=== PATIENT | male | born 2000 | race Caucasian/White ===

== ENCOUNTER 2019-02-24 07:41 | Inpatient (IN) | payer OTHER, BC ==
[2019-02-24] VITALS (8 sets, daily range): BP systolic 109–148; BP diastolic 62–91
[~2019-02-24] VITALS: Ht 180.3 cm; Wt 72.8 kg
--- NOTE | ~2019-02-24 | O ---
[place], [place] OPERATIVE NOTE [id number] UN[facility] #: [id number] ROOM: 517 DOCTOR: VALENTIN FERNANDEZ,GLORIA BIRTHDATE: [birth year] DOS: 02/26/2019 GASTROENDOSCOPIC REPORT SUBJECTIVE: The patient has presented with epigastric abdominal pain, nausea, vomiting. The patient with consumption of marijuana and caffeinated beverages at least 4 bottles of Mountain Dew per day. PROCEDURE: Today's procedure part of investigation is panendoscopy plus biopsy and photographic series. PREMEDICATION: Propofol. SCOPE: Olympus forward-viewing gastroscope Q10 video. REPORT: After putting the patient in left lateral position and application of lubricant to the scope, the scope was introduced. Thereafter, under direct visualization, advanced through the length of esophagus without difficulty. Distal esophageal ulceration and superficial Sharmaine-Jones tear was noticed. Hiatal hernia seen. Bile reflux gastritis was noticed. Duodenal bulb, second and third part mild duodenitis, multiple biopsies obtained from duodenum. Antral biopsy obtained. GI reflexion of the scope reveals cardia to be benign. The patient extubated, tolerated the procedure well. IMPRESSION: Distal esophageal ulcer secondary to reflux, small Sharmaine-Jones tear, hiatal hernia, gastroesophageal reflux disease, status post antral and duodenal biopsy. PLAN AND DISCUSSION: Aggressive ulcer therapy. We are going to give this patient GI cocktail right now, Protonix IV 40 mg b.i.d., Carafate slurry 2 g q.4h, 2 hours before meals and at bedtime, antireflux, elevation of the head of the bed 6 inch all time and clinical reassessment. GLORIA HANSON MD CM:OPRECORD:OPERATIVE NOTE 1512 1526 GLORIA HANSON MD 02/26/19 1527 interface
--- NOTE | ~2019-02-24 | EKG ---
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
--- NOTE | ~2019-02-24 | PR ---
[place], [place] PROGRESS NOTE NAME: FER JAUREGUI [facility] #: [id number] UNIT #: [id number] ROOM: 517 DOCTOR: JUNAID FLORES,OCTOBER BIRTHDATE: [birth year] DOS: 02/27/2019 SUBJECTIVE: The patient is being followed for nausea, vomiting, diarrhea, fevers, possible endocarditis. His temperature overnight was up to 102.9. He had nausea and vomiting earlier. He also has cough-induced emesis. He continues with coughing clear sputum, little shortness of breath as well as diarrhea, no blood in the stool as well as upper mid-epigastric pain that does go through to the back. He had a CT of the abdomen and pelvis, which I reviewed. Unable to access the films that had no acute findings in the abdomen or pelvis. The CTA of the chest showed no PE, faint geographic gap ground glass opacities. The patient had an echocardiogram, which showed possible small right vegetation on the tricuspid valve. He is scheduled for a HOLLY on Friday. All of his blood cultures remained sterile. Urine culture remained sterile. Group A Streptococcal was negative. LABORATORY DATA: Cultures as reviewed above. Vancomycin trough 9.8. REVIEW OF SYSTEMS: As above in history of present illness, otherwise negative. PHYSICAL EXAMINATION: VITAL SIGNS: Temperature 98.6, pulse 78, respirations 18, BP 107/52. GENERAL: A 18-year-old male in mild distress, somewhat toxic in appearance. HEENT: Normocephalic. Pupils equal, round, and reactive to light. Oropharynx without any exudates. No thrush. NECK: Supple. LUNGS: Clear to auscultation bilaterally. Respirations slightly labored. HEART: Regular rhythm. No murmur appreciated. ABDOMEN: Soft, nondistended. Bilateral upper quadrant tenderness to palpation, positive bowel sounds, nondistended. EXTREMITIES: No edema, deformity or cyanosis. SKIN: Warm, dry, free of rashes. Multiple tattoos noted. 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 PLAN: He is to continue vancomycin and Rocephin. Followup on the HOLLY on Friday. Followup on the HIV, histoplasma, urine GC and chlamydia and RPR. OCTOBER MARK QUIROGA [place], [place] PROGRESS NOTE NAME: JODI JAUREGUIJermain Wong UNIT #: [id number] ROOM: 517 DOCTOR: JUNAID FLORESOCTOBER BIRTHDATE: [birth year] Helen Bailey MD CM:PNRC [id number] JUNAID FLORES 02/27/191919 interface
--- NOTE | ~2019-02-24 | CON ---
[place], [place] REPORT OF CONSULTATION NAME: [facility]GUI [id number] UNIT #: [id number] ROOM: 517 DOCTOR: GLORIA HANSON MD BIRTHDATE: [birth year] DOS: 02/26/2019 HISTORY OF PRESENT INDICATIONS: This is a 18-year-old patient who has presented with chief complaint of epigastric abdominal pain for the past 5 days and associated with nausea. The patient has presented himself to the Emergency Room. Radiologic and basic studies were done. The patient with a history of 4-5 cans of Mountain Dew drinking. Yesterday evening, white blood cell was 10, H and H of 14 and 41. Comprehensive metabolic panel: GFR greater than 60. Liver function tests normal. C-reactive protein was normal. Drug screening was THC of greater than 50. His BNP was negative. D-dimer 0.8. Chest x-ray was normal. No acute process. CTA of the chest was done, results were no evidence of pulmonary embolism. Lactic acid was 0.9, normal. CT scan with contrast was done, no acute findings of the abdomen was noticed. CBC differential remained within normal limit. Comprehensive metabolic panel remained within normal limit. Liver function tests normal. Strep screen was negative. Urine cultures were negative. So, essentially all active search for source of sepsis remained negative despite the fact that the patient had a temperature last night and today has been having active nausea, vomiting even at the time of my visit. Monospot was remaining negative. Sed rate was greater than 100. PAST MEDICAL HISTORY: Nonspecific abdominal pain, nausea, or vomiting. PAST SURGICAL HISTORY: None. SOCIAL HISTORY: Denies recreational drugs, particularly in the injection for marijuana periodically. MEDICATIONS: List at home, nil. ALLERGIES: AMOXICILLIN. REVIEW OF SYSTEMS: HEENT: Denies double vision, blurred vision. RESPIRATORY: Denies shortness of breath. CARDIOVASCULAR: Denies acute chest pain. DIGESTIVE SYSTEM: Nausea and vomiting. No diarrhea. PHYSICAL EXAMINATION: VITAL SIGNS: Stable. HEENT: Head normocephalic, nontraumatic. Mouth and buccal mucosa benign. NECK: Supple, no thyromegaly, no cervical lymphadenopathy. CHEST: Symmetric anatomy, equal expansion. No wheeze, no rhonchi. HEART: Normal sinus rhythm, no gallop, no murmur. ABDOMEN: Soft. No hepato-organomegaly. Bowel sounds present. No pulsatile mass. No wheeze. No rebound tenderness, pointing to the epigastric anatomy with pain. EXTREMITIES: No cyanosis, no pedal edema. NEUROLOGIC: Alert, oriented to time, place, person. [place], [place] REPORT OF CONSULTATION NAME: FRE JAUREGUI UNIT #: [id number] ROOM: [facility] DOCTOR: GLORIA HANSON MD BIRTHDATE: [birth year] IMPRESSION: Nausea, vomiting, low-grade temperature, and epigastric pain. A transient ischemic attack workup for sepsis has been negative. CT scan, radiologic, and hematologic studies were all within normal limit. PLAN AND DISCUSSION: Due to the persistent nausea, vomiting I am going to organize endoscopy of upper tract and further decision for repeat studies or otherwise no pattern of assessment depending on endoscopic findings. So far, there have been normal liver, pancreas, spleen, adrenal glands, and kidneys all main organs within normal limits. GLORIA HANSON MD CM:CONSTR:REPORT OF CONSULTATION 1445 02/26/19 9500 interface
--- NOTE | ~2019-02-24 | PR ---
[place], [place] PROGRESS NOTE NAME: FER JAUREGUI [facility] #: [id number] UNIT #: [id number] ROOM: 517 DOCTOR: JUNAID FLORES,OCTOBER BIRTHDATE: [birth year] DOS: 02/28/2019 SUBJECTIVE: The patient is a 18-year-old male being followed for recurrent fever of unknown origin. His blood cultures remained sterile. Urine culture from admission on the is sterile. He had a UA done twice, which has not demonstrated any pyuria. He continues to have nausea and vomiting. He had an EGD on the which showed a small Sharmaine-Jones tear as well as a distal esophageal ulcer, hiatal hernia and GERD. He had an echocardiogram, which showed a small mobile echodensity on the tricuspid valve. He is to have a HOLLY tomorrow. He continues with fevers, chills, coughing or vomiting. He is bringing up very little sputum. He had diarrhea earlier today. He states a small amount of blood in his emesis. Temp documented max today is 102.8. Lactic acid was 2.3 at 5:43 a.m. down to 1.0 at 7:55. He has some shortness of breath after emesis. Continues to complain of upper mid epigastric pain. He had a repeat CT of the chest, abdomen and pelvis, which showed a slight worsening in scattered patchy ground glass areas of airspace consolidation involving all lobes and a possible small area of pyelonephritis involving mid pole of left knee, though this is doubtful considering his negative UA. He has no complaints of urinary issues. LABORATORY DATA: Cultures as reviewed above. WBC is 10.1, platelets 422. BUN 7, creatinine 0.89. LFTs within normal limits. Albumin 2.7. MEDICATIONS: Include ibuprofen, Levaquin, Tylenol, DuoNeb, vancomycin, Carafate, Dilaudid, Reglan, Rocephin, Mucinex, Lovenox, and Protonix. PHYSICAL EXAMINATION: VITAL SIGNS: Temperature 99.2, pulse 92, respirations 16, BP 144/89. GENERAL: A 18-year-old male, fairly toxic in appearance. HEENT: Normocephalic. Oropharynx clear. No thrush. NECK: Supple. LUNGS: Clear to auscultation bilaterally throughout. Respirations slightly labored, just status post emesis. HEART: Regular rhythm. No murmur appreciated. ABDOMEN: Soft, nondistended, positive bowel sounds. EXTREMITIES: No edema, deformity or cyanosis. SKIN: Warm, dry, free of rashes. ASSESSMENT: Recurrent fever, tricuspid valve vegetation. He is to have a HOLLY tomorrow. Blood cultures remained sterile. PLAN: To continue vancomycin and Rocephin. Chest CT did show worsening. Levaquin was added by hospitalist. This would add coverage for pseudomonas and legionella. We will order urine for legionella antigen. Follow up on his cultures as well as HIV, histoplasma, urine for GC and chlamydia as well as his RPR. Follow up on the HOLLY tomorrow. [place], [place] PROGRESS NOTE NAME: FER JAUREGUI UNIT #: [id number] ROOM: [facility] DOCTOR: JUNAID FLORESOCTOBER BIRTHDATE: [birth year] SHELLIE QUIROGA CNP Helen Bailey MD CM:SUDHIR 11 JUNAID FLORES 02/28/191712 interface
--- NOTE | ~2019-02-24 | EKG ---
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
--- NOTE | ~2019-02-24 | POSTOPNOTE ---
[place], [place] POSTOPERATIVE PROGRESS NOTE NAME: FER JAUREGUI UNIT #: [id number] ROOM: [facility] DOCTOR: GLORIA HANSON MD BIRTHDATE: [birth year] DATE: 02/26/19 GI NOTE PREOPERATIVE DIAGNOSIS: EPIGASTRIC ABDOMINAL PAIN, NAUSEA, VOMITING POSTOP UPPER GI PROC/FINDINGS: UPPER GI PROCEDURE/SURGERY: EGD WITH BIOPSY UPPER GI FINDINGS: DISTAL ESOPHAGEAL ULCER SECONDARY TO REFLUX, SMALL UNRULY-KWON TEAR, HIATAL HERNIA, GASTROESOPHAGEAL REFLUX DISEASE, STATUS POST ANTRAL AND DUODENCAL BIOPSY GLORIA HANSON MD CM:POSTOPN GLORIA HANSON MD 03/01/19 0654 ROSALBA LUKE MIS.R
[2019-02-24 08:06] LABS: BASO % 0.3 % (0.0-1.0); EOS % 0.4 % (1.0-4.0); HEMATOCRIT 41.7 % (42.0-52.0); LYMPH # 0.7 10*3/uL (1.3-4.4); LYMPH % 7.1 % (27.0-41.0); MEAN CELL VOLUME 80.2 fl (80.0-94.0); MEAN CORPUSCULAR HGB 26.9 pg (27.0-31.0); MEAN CORPUSCULAR HGB CONC 33.6 g/dl (33.0-37.0); MEAN PLATELET VOLUME 8.9 fl (9.6-12.3); MONO # 0.5 10*3/uL (0.1-1.0); MONO % 5.2 % (3.0-9.0); NEUT % 86.6 % (47.0-73.0); PLATELET COUNT AUTOMATED 281 10*3/uL (130-400); RED CELL DISTRI WIDTH 11.7 % (0-14.5); WHITE BLOOD COUNT 10.4 10*3/uL (4.8-10.8)
[2019-02-24 08:20] LABS: ALBUMIN 3.5 gm/dl (3.1-4.5); ALKALINE PHOSPHATASE 91 U/L (45-117); BUN 12 mg/dl (7-24); CHLORIDE 100 mmol/L (98-107); CREATININE 1.11 mg/dL (0.70-1.30); LIPASE 95 U/L (73-393); POTASSIUM 3.7 mmol/L (3.5-5.1); SGOT/AST 16 IU/L (3-35); SGPT/ALT 12 U/L (12-78); SODIUM 132 mmol/L (136-145); TOTAL PROTEIN 8.4 gm/dL (6.4-8.2)
[2019-02-24] MEDS ORDERED: KEFLEX 500 MG E2 CAP PO (08:32)
[2019-02-24 08:41] LABS: BILIRUBIN 2+ (NEGATIVE); BLOOD NEGATIVE (NEGATIVE); CLARITY SL CLOUDY (CLEAR); COLOR YELLOW (YELLOW); GLUCOSE TRACE (NEGATIVE); KETONE 3+ (NEGATIVE); LEUKO ESTERASE NEGATIVE (NEGATIVE); NITRITE NEGATIVE (NEGATIVE); URINE AMPHETAMINES < 1000 (1000ng/ml); URINE BARBITURATES < 200 (200ng/ml); URINE BENZODIAZEPINES < 200 (200ng/ml); URINE CANNABINOIDS (THC) > 50 (50ng/ml); URINE COCAINE < 300 (300ng/ml); URINE METHADONE < 300 (300ng/ml); URINE OPIATES < 300 (300ng/ml); URINE PHENCYCLIDINE < 25 (25ng/ml); UROBILINOGEN >= 8.0 E.U./dl (0.2-1.0)
[2019-02-24 08:58] LABS: BACTERIA 1+; MUCOUS 3+; WBC 16-20 wbc/hpf (0-5)
--- NOTE | 2019-02-24 11:15 | NUR ---
PT SLEEPING IN BED AT THIS TIME AROUSES EASILY. RESPS EASY AND NONLABORED. PT DENIES NAUSEA AND STATES THAT HIS PAIN IS 3/10 AT THIS TIME.
--- NOTE | 2019-02-24 12:55 | NUR ---
Time: 1254 A 18 year old MALE admitted to 5E under services of RAOUL WEST DO, Pt. arrived via stretcher from ER. Chief complaint: ABD PAIN, N/V. CAROLINAYA,BRUNO D
--- NOTE | 2019-02-24 15:33 | NUR ---
pt woke up from sleeping . face is flushed. chilling, freezing. states his head hurts and abd pain. esther suggs notified
--- NOTE | 2019-02-24 16:38 | NUR ---
PT MEDICATED WITH TORADOL FOR C/O MIGRAINE AND ABD PAIN WILL MONITOR
--- NOTE | 2019-02-24 16:39 | NUR ---
PT MEDICATED WITH BENEDRYL FOR NAUSEA. WILL MONITOR
--- NOTE | 2019-02-24 21:29 | NUR ---
PRN TYLENOL GIVEN FOR PT COMPLAINTS OF A SHARP PAIN IN THE MIDDLE OF HIS ABDOMEN, RATING IT 4/10 ONCE HE LAID DOWN, BUT WAS 8/10 WHEM STANDING UP. CALL LIGHT WITHIN REACH, WILL MONITOR
--- NOTE | 2019-02-24 22:40 | NUR ---
PRN TYLENOL EFFECTIVE PER PT
[2019-02-25] VITALS: BP 118/62
--- NOTE | 2019-02-25 06:35 | NUR ---
PATIENT WOKE UP IN A SWEAT. CHECKED PATIENTS TEMPERATURE AND BLOOD SUGAR, TEMP WAS 99.2 AND BLOOD SUGAR WAS 98. OFFERED FOR PATIENT TO GET IN THE SHOWER, PATIENT STATED THAT MIGHT MAKE HIM FEEL A LITTLE BETTER. PRN TYLENOL ALSO PROVIDED FOR PATIENT AT THIS TIME. CALL LIGHT WITHIN REACH, WILL MONITOR
[2019-02-25 07:01] LABS: BASO % 0.1 % (0.0-1.0); EOS # 0.1 10*3/uL (0.0-0.4); EOS % 0.7 % (1.0-4.0); HEMATOCRIT 35.8 % (42.0-52.0); HEMOGLOBIN 11.8 g/dl (14.0-18.0); LYMPH # 0.6 10*3/uL (1.3-4.4); LYMPH % 8.1 % (27.0-41.0); MEAN CELL VOLUME 81.4 fl (80.0-94.0); MEAN CORPUSCULAR HGB 26.8 pg (27.0-31.0); MEAN PLATELET VOLUME 9.2 fl (9.6-12.3); MONO # 0.3 10*3/uL (0.1-1.0); MONO % 4.2 % (3.0-9.0); NEUT % 86.5 % (47.0-73.0); PLATELET COUNT AUTOMATED 222 10*3/uL (130-400); RED CELL DISTRI WIDTH 11.8 % (0-14.5); WHITE BLOOD COUNT 6.9 10*3/uL (4.8-10.8)
--- NOTE | 2019-02-25 07:26 | NUR ---
24 HR chart check completed.
[2019-02-25 07:27] LABS: ALBUMIN 2.8 gm/dl (3.1-4.5); CHLORIDE 106 mmol/L (98-107); POTASSIUM 3.7 mmol/L (3.5-5.1); SODIUM 138 mmol/L (136-145)
[2019-02-25 07:33] LABS: ALKALINE PHOSPHATASE 71 U/L (45-117); BUN 11 mg/dl (7-24); CREATININE 0.87 mg/dL (0.70-1.30); PHOSPHOROUS 2.7 mg/dL (2.5-4.9); SGOT/AST 11 IU/L (3-35); SGPT/ALT 11 U/L (12-78); TOTAL PROTEIN 7.1 gm/dL (6.4-8.2)
--- NOTE | 2019-02-25 08:20 | NUR ---
Patient resting quietly with no c/o discomfort. Respirations easy and regular. Vital signs stable. No overt distress. ROBBIE DIAS
[2019-02-25 08:34] VITALS: BP 106/50
--- NOTE | 2019-02-25 09:23 | NUR ---
PT EDICATED ON DR HANSON CONSULT, TESTING, MEDICATIONS AND SYMPTOMS R/T THIS ADM AND POSSIBLE GI ISSUES. PT DOES CONTINUE TO ADMIT TO STABBING ABDOMINAL PAIN.
[2019-02-25 11:44] VITALS: BP 121/71
--- NOTE | 2019-02-25 12:29 | NUR ---
MEDICATED WITH IV DILAUDID ORDERED PER PT REQUEST FOR C/O STABBING ABDOMINAL PAIN RATED 8/10. BA ON.
--- NOTE | 2019-02-25 13:38 | NUR ---
Warehouse Associate Driver in to talk to patient. Patient states lives at HOME with PARENTS. There are FEW steps in the home. Physician: BERNARDA Pharmacy: [facility] Home health services: NO Patient's level of ADLs: INDEPENDENT Patient has working utilities: YES DME: NONE Follow-up physician's appointment after d/c: WILL BE MADE AFTER DISCHARGE Does patient want to access PORTAL?: NO Discharge plan PT WILL RETURN HOME WITH PARENTS ON DISCHARGE WITH NO NEW NEEDS.. WILL CONTINUE TO FOLLOW. PT STATES HE WILL HAVE A RIDE HOME. WILVER KNOX
--- NOTE | 2019-02-25 14:00 | NUR ---
MEDICATION EFFECTIVE FOR PAIN.
[2019-02-25 16:00] VITALS: BP 120/70
--- NOTE | 2019-02-25 16:48 | NUR ---
MEDICATED WITH PO TYLENOL ORDERED PER PT REQUEST FOR TEMP OF 102.4.
--- NOTE | 2019-02-25 17:33 | NUR ---
MEDICATED WITH IV DILAUDID ORDERED PER PT REQUEST FOR C/O ABDOMINAL PAIN RATED 5/10.
--- NOTE | 2019-02-25 19:30 | NUR ---
MEDICATION EFFECTIVE FOR PAIN.
[2019-02-25 20:00] VITALS: BP 116/68
[2019-02-26] VITALS (10 sets, daily range): BP systolic 105–141; BP diastolic 46–88
--- NOTE | 2019-02-26 03:39 | NUR ---
24HR CHART CHECK COMPLETED.
--- NOTE | 2019-02-26 05:10 | NUR ---
CALLED TO PT ROOM. STATES HE "CAN'T BREATH". PT FOUND TO BE TACHYPNIC, HR 113, BP 137/88, POX 94% ON RA. TEMP 102.3. 2L NC PLACED ON, COACHED PT TO CONTROLL BREATHING IN AND OUT WITH DEEP BREATHING TECHNIQUES. ZOFRAN GIVEN FOR NAUSEA/EMESIS, DILAUDID GIVEN FOR ABDOMINAL PAIN 10/10, TYLENOL GIVEN FOR FEVER. WILL MONITOR FOR EFFECTIVENESS. PT CALMING DOWN AFTER MEDS WERE GIVEN. ASKED NURSE TO STAY IN ROOM A WHILE LONGER.
--- NOTE | 2019-02-26 05:29 | NUR ---
PT MORE CALM AT THIS TIME. RESPERS 18 ON 2LNC. REPORTS "FEELING BETTER" AT THIS TIME. "LIKE IT NEVER HAPPENED." CALL LIGHT IN REACH. IVF GOING.
[2019-02-26 06:34] LABS: HEMATOCRIT 34.3 % (42.0-52.0); HEMOGLOBIN 11.2 g/dl (14.0-18.0); MEAN CELL VOLUME 81.7 fl (80.0-94.0); MEAN CORPUSCULAR HGB 26.7 pg (27.0-31.0); MEAN CORPUSCULAR HGB CONC 32.7 g/dl (33.0-37.0); MEAN PLATELET VOLUME 8.8 fl (9.6-12.3); PLATELET COUNT AUTOMATED 218 10*3/uL (130-400); RED CELL DISTRI WIDTH 11.9 % (0-14.5)
--- NOTE | 2019-02-26 06:52 | NUR ---
TEMP 100.3 FOLLOWING TYLENOL. NO COMPLAINTS VOICED. CALL LIGHT IN REACH. IVF GOING WITH EASE.
[2019-02-26 07:01] LABS: BUN 9 mg/dl (7-24); CHLORIDE 103 mmol/L (98-107); CREATININE 0.86 mg/dL (0.70-1.30); POTASSIUM 3.6 mmol/L (3.5-5.1); SODIUM 136 mmol/L (136-145)
[2019-02-26 07:22] LABS: BASOPHILS 3 % (0-1); PLATELET SUFFICIENCY NORMAL (NORMAL); TOTAL CELLS COUNTED 100 #CELLS
--- NOTE | 2019-02-26 09:19 | NUR ---
Dilaudid given for c/o abdominal pain and Zofran given for c/o nausea. Will monitor.
--- NOTE | 2019-02-26 09:26 | NUR ---
Message regarding consult for fever of unknown origin was left with Dr. Peterson office.
--- NOTE | 2019-02-26 10:00 | NUR ---
Dilaudid not effective, patient very uncomfortable.
[2019-02-26 10:01] LABS: ALBUMIN 2.4 gm/dl (3.1-4.5); ALKALINE PHOSPHATASE 68 U/L (45-117); BUN 8 mg/dl (7-24); CHLORIDE 104 mmol/L (98-107); CREATININE 0.86 mg/dL (0.70-1.30); LIPASE 56 U/L (73-393); POTASSIUM 3.7 mmol/L (3.5-5.1); SGOT/AST 14 IU/L (3-35); SGPT/ALT 10 U/L (12-78); SODIUM 135 mmol/L (136-145)
--- NOTE | 2019-02-26 10:39 | NUR ---
Ativan given for anxiety. Will monitor.
--- NOTE | 2019-02-26 11:00 | NUR ---
Spoke with Liza regarding lab results. Liza immediately followed up at patients bedside. See new orders.
--- NOTE | 2019-02-26 11:15 | NUR ---
One time dose of Dilaudid given for patient continued c/o abdominal pain. Will monitor.
--- NOTE | 2019-02-26 11:46 | NUR ---
Notified Liza Mon CNP of patients temperature. See vitals and Emar.
--- NOTE | 2019-02-26 11:52 | NUR ---
Tylenol given for elevated temperature. See vitals. Will monitor.
--- NOTE | 2019-02-26 11:57 | NUR ---
Patient is still c/o stabbing abdominal pain rated 6/10. Will continue to monitor.
--- NOTE | 2019-02-26 12:46 | NUR ---
Patient continues to c/o abdominal pain. He is presenting with less signs of distress.
--- NOTE | 2019-02-26 13:00 | NUR ---
Tylenol effective. See vitals.
--- NOTE | 2019-02-26 13:29 | NUR ---
Motrin given for elevated temperature. Will monitor.
--- NOTE | 2019-02-26 13:29 | NUR ---
Dilaudid given for c/o abdominal pain rated 7/10. Will monitor.
--- NOTE | 2019-02-26 14:00 | NUR ---
Dilaudid effective. Patient more comfortable. Being transported to surgery
--- NOTE | 2019-02-26 14:12 | NUR ---
PT CONTINUES TO SAY HE WILL RETURN HOME WITH HIS PARENTS AND WILL HAVE NO NEW NEEDS ON DISCHARGE.
--- NOTE | 2019-02-26 15:57 | NUR ---
Message left with [facility] regarding consult for endocarditis.
--- NOTE | 2019-02-26 17:50 | NUR ---
Dilaudid given per patient request for epigastric pain rated 7/10.
--- NOTE | 2019-02-26 18:35 | NUR ---
Dilaudid effective. Patient rates pain 5/10.
--- NOTE | 2019-02-26 21:52 | NUR ---
PRN DILAUDID GIVEN FOR A PAIN LEVEL OF 10/10. WILL REASSESS EFFECTIVENESS.
--- NOTE | 2019-02-26 22:22 | NUR ---
PRN DILAUDID WAS EFFECTIVE. PT IS RESTING COMFORTABLY IN BED.
[2019-02-27] VITALS: BP 137/84
--- NOTE | 2019-02-27 02:11 | NUR ---
PRN MOTRIN WAS GIVEN FOR A TEMP OF 102.9. WILL REASSESS EFFECTIVENESS.
--- NOTE | 2019-02-27 02:11 | NUR ---
PRN DILAUDID GIVEN FOR A PAIN LEVEL OF 10/10. WILL REASSESS EFFECTIVENESS.
--- NOTE | 2019-02-27 02:41 | NUR ---
PRN DILAUDID WAS EFFECTIVE. PT STATES THAT HIS PAIN LEVEL IS NOT NEARLY BAD IT WAS. PT IS RESTING COMFORTABLY IN BED, NO SIGNS OF DISTRESS.
--- NOTE | 2019-02-27 03:17 | NUR ---
PRN MOTRIN WAS UNEFFECTIVE. TEMP IS 102.1. WILL RECHECK TEMP, IF DOES NOT IMPROVE WILL TRY PRN TYLENOL.
--- NOTE | 2019-02-27 06:51 | NUR ---
24 HR chart check completed.
[2019-02-27 08:00] VITALS: BP 130/72
--- NOTE | 2019-02-27 08:00 | NUR ---
PATIENT ALERT AND PLESANT. SITTING UP IN BED WATCHING TV. DENIES ANY DISCOMFORT AT THIS TIME. NO COMPLAINTS. POPSICLE GIVEN PER PATIENTS REQUEST. CALL LIGHT REINFORCED. WILL CONTINUE TO MONITOR. DELMER FERNANDEZ OVCT INSTRUCTOR/ AMAURY BASURTO OVCT STUDENT
[2019-02-27 08:10] LABS: HEPATITIS B SURFACE AG Negative (Negative); HEPATITIS C VIRUS ANTIBODY <0.1 s/co (0.0-0.9)
[2019-02-27 12:00] VITALS: BP 107/52
--- NOTE | 2019-02-27 12:05 | NUR ---
PATIENT REQUESTING PAIN MEDICATION FOR MID-ABDOMINAL PAIN RATED 9/10 ON 0/10 SCALE. DILAUDID ADMINISTERED PRESCRIBED. WILL MONITOR FOR EFFECTIVENESS.
--- NOTE | 2019-02-27 13:05 | NUR ---
PATIENT STATES THAT DILAUDID WAS EFFECTIVE FOR PAIN, RATES 4/10 AT THIS TIME. WILL MONITOR.
--- NOTE | 2019-02-27 18:31 | NUR ---
PATIENT HAS HAD TWO MORE EPISODES OF EMESIS AFTER ADMINISTRATION OF ZOFRAN. DR PIZANO CALLED. NEW ORDER RECEIVED SEE EMAR.
[2019-02-27 20:00] VITALS: BP 134/69
[2019-02-28] VITALS: BP 109/54
--- NOTE | 2019-02-28 00:35 | NUR ---
DILAUDID EFFECTIVE. PT REPORTING PAIN 1/10 AND MORE RESTFUL THAN EARLIER. CALL LIGHT IN REACH. NO FURTHER COMPLAINTS AT THIS TIME.
--- NOTE | 2019-02-28 03:12 | NUR ---
WALKED INTO PTs ROOM TO GIVE ROUTINE MEDS. WENT TO FLUSH IV TO START VANCO PER ORDERS. IV SITE NO LONGER INTACT. PT SHAKING WITH CHILLS. STATES IT "JUST CAME ON WHEN I WOKE UP." TEMP 97.7. ALSO STATES THAT HE IS COLD AND HAS ABD PAIN RATED 7/10. NEW IV SITE ESTABLISHED TO RT AC. CALLED FOR CHANGE IN STATUS. ASSESSED. SAID SHE WOULD PUT ORDERS IN.
[2019-02-28 03:40] LABS: BASO % 0.4 % (0.0-1.0); EOS # 0.3 10*3/uL (0.0-0.4); HEMATOCRIT 39.8 % (42.0-52.0); HEMOGLOBIN 13.1 g/dl (14.0-18.0); LYMPH # 0.8 10*3/uL (1.3-4.4); LYMPH % 8.2 % (27.0-41.0); MEAN CELL VOLUME 81.4 fl (80.0-94.0); MEAN CORPUSCULAR HGB 26.8 pg (27.0-31.0); MEAN CORPUSCULAR HGB CONC 32.9 g/dl (33.0-37.0); MEAN PLATELET VOLUME 8.9 fl (9.6-12.3); MONO # 0.3 10*3/uL (0.1-1.0); MONO % 2.8 % (3.0-9.0); NEUT # 8.6 10*3/uL (2.3-7.9); NEUT % 84.9 % (47.0-73.0); RED BLOOD COUNT 4.89 10*6/uL (4.50-5.90); RED CELL DISTRI WIDTH 12.4 % (0-14.5); WHITE BLOOD COUNT 10.1 10*3/uL (4.8-10.8)
[2019-02-28 03:41] LABS: PLATELET COUNT AUTOMATED 422 10*3/uL (130-400)
[2019-02-28 03:47] LABS: INTERNATIONAL NORM RATIO 1.2 (2.0-3.5)
[2019-02-28 03:51] LABS: ALBUMIN 2.7 gm/dl (3.1-4.5); ALKALINE PHOSPHATASE 80 U/L (45-117); BUN 7 mg/dl (7-24); CHLORIDE 105 mmol/L (98-107); CREATININE 0.89 mg/dL (0.70-1.30); POTASSIUM 3.5 mmol/L (3.5-5.1); SGOT/AST 16 IU/L (3-35); SGPT/ALT 13 U/L (12-78); SODIUM 140 mmol/L (136-145)
--- NOTE | 2019-02-28 07:35 | NUR ---
PATIENT REQUESTING PAIN MEDICATION FOR ABDOMINAL PAIN RATED 9/10 ON 0/10 SCALE. DILAUDID ADMINISTERED PRESCRIBED. WILL MONITOR FOR EFFECTIVENESS.
--- NOTE | 2019-02-28 07:45 | NUR ---
SpO2 89-90% ON ROOM AIR. PLACED ON 2LNC, SpO2 INCREASED TO 93%. PATIENT DENIES ANY SHORTNESS OF BREATH. SHALLOW BREATHING NOTED. ENCOURAGED TO TAKE SLOW DEEP BREATHS.
[2019-02-28 08:00] VITALS: BP 134/87
[2019-02-28 08:30] LABS: BILIRUBIN NEGATIVE (NEGATIVE); BLOOD NEGATIVE (NEGATIVE); CLARITY CLOUDY (CLEAR); COLOR YELLOW (YELLOW); GLUCOSE NEGATIVE (NEGATIVE); KETONE TRACE (NEGATIVE); LEUKO ESTERASE NEGATIVE (NEGATIVE); NITRITE NEGATIVE (NEGATIVE); SPECIFIC GRAVITY 1.025 (1.005-1.030); UROBILINOGEN 0.2 E.U./dl (0.2-1.0)
--- NOTE | 2019-02-28 08:35 | NUR ---
PATIENT STATED THAT PAIN MEDICATION WAS EFFECTIVE FOR ABDOMINAL PAIN. WILL MONITOR.
--- NOTE | 2019-02-28 09:11 | NUR ---
PATIENT MEDICATED WITH ZOFRAN FOR NAUSEA.
--- NOTE | 2019-02-28 09:20 | NUR ---
WHILE GETTING PATIENT ON STRETCHER FOR CT SCAN, PATIENT'S SKIN HOT TO TOUCH, ORAL TEMP 102.8. ABAD VAN CALLED. ORDERED TO GIVE MOTRIN AND TYLENOL AT THIS TIME. WILL MONITOR.
--- NOTE | 2019-02-28 09:35 | NUR ---
PATIENT MEDICATED WITH MOTRIN AND TYLENOL FOR TEMP OF 102.8. WILL MONITOR.
--- NOTE | 2019-02-28 10:11 | NUR ---
PATIENT STATED THAT ZOFRAN WAS EFFECTIVE FOR NAUSEA.WILL MONITOR.
--- NOTE | 2019-02-28 11:15 | NUR ---
PATIENT REQUESTING PAIN MEDICATION FOR ABDOMINAL PAIN RATED 8/10 ON 0/[address] QUIÑONEZ CALLED- WILL DISCUSS WITH DR HATHAWAY.
[2019-02-28 12:00] VITALS: BP 135/81
--- NOTE | 2019-02-28 12:00 | NUR ---
TEMP 99.3 AT THIS TIME. WILL MONITOR.
--- NOTE | 2019-02-28 13:22 | NUR ---
PATIENT MEDICATED WITH DILAUDID FOR 9/10 ABDOMINAL PAIN. JOAQUIN MONITOR FOR EFFECTIVENESS.
--- NOTE | 2019-02-28 14:22 | NUR ---
PATIENT STATES THAT DILUADID WAS "SOMEWHAT" EFFECTIVE FOR PAIN. RATES 5/10 AT THIS TIME. WILL MONITOR.
[2019-02-28 16:00] VITALS: BP 144/89
--- NOTE | 2019-02-28 16:35 | NUR ---
CALLED TO ROOM BY PATIENT FOR EMESIS AFTER HE DRANK A SMALL AMOUNT OF MILKSHAKE. WILL MEDICATE FOR NAUSEA.
--- NOTE | 2019-02-28 16:48 | NUR ---
PATIENT MEDICATED WITH TYLENOL FOR TEMP 102.8. WILL MONITOR.
--- NOTE | 2019-02-28 18:27 | NUR ---
PATIENT MEDICATED WITH 1x DOSE TORADOL FOR ABDOMINAL PAIN RATED 9/10 ON 0/10 SCALE. WILL MONITOR FOR EFFECTIVENESS.
--- NOTE | 2019-02-28 18:50 | NUR ---
PATIENT MEDICATED WITH MOTRIN FOR TEMP 100.6 AT THIS TIME. WILL MONITOR.
[2019-02-28 20:00] VITALS: BP 121/63
--- NOTE | 2019-02-28 20:05 | NUR ---
PATIENT MEDICATED WITH DILAUDID FOR COMPLAINTS OF ABDOMINAL PAIN. WILL CONTINUE TO MONITOR. CALL LIGHT IN REACH.
[2019-03-01] VITALS (10 sets, daily range): BP systolic 121–154; BP diastolic 66–103
--- NOTE | 2019-03-01 00:56 | NUR ---
PATIENT MEDICATED WITH ZOFRAN IV FOR UNCONTROLLABLE VOMITING OF CLEAR YELLOW LIQUID. PATIENT COMPLAINING OF SEVERE ABDOMINAL PAIN. WILL CONTINUE TO MONITOR.
--- NOTE | 2019-03-01 01:10 | NUR ---
DR. CRSITINA NOTIFIED OF PATIENT BEING IN EXTREME PAIN. NEW ORDER FOR DILAUDID 0.5MG X1 NOW.
--- NOTE | 2019-03-01 03:20 | NUR ---
PATIENT WOKE UP EXTREMELY ANXIOUS SAYING HE COULDN'T BREATHE. O2 SAT 85%. O2 APPLIED AT 4L N/C. AER. TX. GIVEN BY RESPIRATORY THERAPY. O2 SAT UP TO 97%. WILL CONTINUE TO MONITOR. CALL LIGHT IN REACH.
--- NOTE | 2019-03-01 03:41 | NUR ---
PATIENT GIVEN TYLENOL SUPPOSITORY 650MG FOR FEVER OF 103.0.
--- NOTE | 2019-03-01 06:18 | NUR ---
PATIENT MEDICATED WITH DILAUDID FOR SEVERE ABDOMINAL PAIN AND ZOFRAN FOR VOMITING STOMACH BILE. WILL CONTINUE TO MONITOR.
[2019-03-01 06:34] LABS: HEMATOCRIT 30.5 % (42.0-52.0); HEMOGLOBIN 10.2 g/dl (14.0-18.0); MEAN CELL VOLUME 79.4 fl (80.0-94.0); MEAN CORPUSCULAR HGB 26.6 pg (27.0-31.0); MEAN CORPUSCULAR HGB CONC 33.4 g/dl (33.0-37.0); MEAN PLATELET VOLUME 8.7 fl (9.6-12.3); PLATELET COUNT AUTOMATED 321 10*3/uL (130-400); RED BLOOD COUNT 3.84 10*6/uL (4.50-5.90); RED CELL DISTRI WIDTH 12.7 % (0-14.5); WHITE BLOOD COUNT 6.2 10*3/uL (4.8-10.8)
[2019-03-01 07:02] LABS: BUN 4 mg/dl (7-24); CHLORIDE 107 mmol/L (98-107); POTASSIUM 2.9 mmol/L (3.5-5.1); SODIUM 139 mmol/L (136-145)
--- NOTE | 2019-03-01 07:24 | NUR ---
TEMP AT SHIFT CHANGE 100.2 FOLLOWING ICE BAGS TO ARM PITS. WILL RE-CHECK AND MONITOR.
[2019-03-01 07:43] LABS: BURR CELLS FEW; MICROCYTOSIS SLIGHT; SCHISTOCYTES FEW; TOTAL CELLS COUNTED 100 #CELLS
[2019-03-01 07:44] LABS: PLATELET SUFFICIENCY NORMAL (NORMAL)
--- NOTE | 2019-03-01 09:31 | NUR ---
CALLED CAROLYN FOR TEMP OF 101.5 DEPSITE NURSING INTERVENTIONS. SAID HE WOULD ORDER SOMETHING.
--- NOTE | 2019-03-01 09:59 | NUR ---
TEMP 99.7 FOLLOWING TORADOL. WILL CONTINUE TO MONITOR. PLACED ON COOLING BLANKET.
--- NOTE | 2019-03-01 12:02 | NUR ---
OFF FLOOR FOR HOLLY.
--- NOTE | 2019-03-01 13:52 | NUR ---
BACK TO ROOM FOLLOWING HOLLY.
--- NOTE | 2019-03-01 14:44 | NUR ---
NASUEA "IS NOT BETTER BUT NOT WORSE" PER PT FOLLOWING ZOFRAN. NO FURTHER COMPLAINTS. TOLERATING BARIUM WELL. CALL LIGHT IN REACH.
--- NOTE | 2019-03-01 14:51 | NUR ---
PTs FATHER IS CONCERNED WITH PTs CARE. QUESTIONING TO HAVE HIM TRANSFERRED TO ANOTHER HOSPITAL. IN TO SEE PT.
--- NOTE | 2019-03-01 16:06 | NUR ---
AND IN TO SEE PT AND TALK WITH FAMILY.
--- NOTE | 2019-03-01 16:23 | NUR ---
NEW ORDER FOR PHENERGAN REC'D FROM FOR NAUSEA/VOMITING DESPITE ZOFRAN GIVEN EARLIER. SEE MAR.
--- NOTE | 2019-03-01 17:51 | NUR ---
TEMP 100.0, TYELENOL GIVEN. COOLING BLANKET ADJUSTED. CALL LIGHT IN REACH. IVF GOING WITH EASE. WILL MONITOR.
[2019-03-01] MEDS ORDERED: ENOXAPARIN40 MG/0.2 SC (17:55)
[2019-03-01] MEDS ORDERED: VANCOMYCIN1.75 GM/50 IV (17:55)
[2019-03-01] MEDS ORDERED: LEVOFLOXAC750 MG/150 IV (17:55)
[2019-03-01] MEDS ORDERED: METOCLOPRAM5 MG/1 ML IV (17:55)
[2019-03-01] MEDS ORDERED: PROTONIX40 M1 IV (17:55)
[2019-03-01] MEDS ORDERED: MUCINEX ER600 MG PO (17:55)
[2019-03-01] MEDS ORDERED: Carafate1 GM PO (17:55)
[2019-03-01] MEDS ORDERED: CEFTRIAXON2 GM/50 ML IV (17:55)
--- NOTE | 2019-03-01 18:16 | NUR ---
AUTHORIZATION (CASE) # [id number] AND FAX # FOR [facility] TRANSFER.
--- NOTE | 2019-03-01 18:27 | NUR ---
SPOKE WITH ROSALBA MCCANNSHIFT LEADER AT [facility], PT IS UNABLE TO BE TRANSFERRED TODAY DUE TO PENDING AUTHORIZATION. NOTIFIED. SAID HE WOULD PASS IT ON TO .
--- NOTE | 2019-03-01 18:34 | NUR ---
INFORMED PTs FATHER THAT THE INSURENACE REQUIERS THE PRE-AUTH TO BE FINALIZED IN ORDER TO BE TRANSFERRED OUT. WENT OVER INSURANCE INFO TO FIND OUT THAT THE INSURANCE LISTED UNDER THEN PTs ACCOUNT IS WRONG. VERIFIED WITH PT. FAX NUMBER PROVIDED TO FATHER, SAID HE WOULD FAX COPIES OF THE PTs INSURANCE CARDS OVER TO BE UPDATED.
--- NOTE | 2019-03-01 19:41 | NUR ---
CALLED FOR ABDOMINAL PAIN RATED 10/10. PT ANXIOUS AND RESTLESS. SAID SHE WOULD ORDER ATIVAN AND DILAUDID.
--- NOTE | 2019-03-01 19:51 | NUR ---
PATIENT AWAKE, RESTLESS & ANXIOUS. HR 90-110'S. TEMP 100.2. NAUSEATED. MEDICATED WITH MOTRIN PER PRN ORDER TO ELEVATED TEMP. ALSO PROVIDED WITH ZOFRAN TO ASSIST WITH NAUSEA. POSITIONED FOR COMFORT. COOLING BLANKET MAINTAINED. IV FLUIDS INFUSING PER ORDER. CALL LIGHT WITHIN REACH.
--- NOTE | 2019-03-01 20:13 | NUR ---
1 TIME DOSE DILAUDID IV GIVEN TO ASSIST WITH C/O ABD PAIN RATING AN 8. ALSO MEDICATED WITH ATIVAN IV TO ASSIST WITH ANXIETY AND RESTLESSNESS. PROVIDED WITH ICE CHIPS. STAYED WITH PATIENT TO PROVIDED SUPPORT AND CALM. FAMILY PRESENT AT BEDSIDE.
--- NOTE | 2019-03-01 20:45 | NUR ---
PATIENT MORE CALM. DROWSY. RESTING WITH EYES CLOSED. RESPIRATIOS EASY. HR 80'S. PULSE OX 98% ON 3.5L HUMDIFIED. COOLING BLANKET REMAINS IN USE. IV FLUIDS INFUSING PER ORDER. CALL LIGHT WITHIN REACH. NO FURTHER VOICED COMPLAINTS. CLOSE OBSERVATION
--- NOTE | 2019-03-01 22:00 | NUR ---
SLEEPING. HR 70-80'S. O2 IN USE. AFEBRILE. WILL CONTINUE TO MONITOR
--- NOTE | 2019-03-01 23:28 | NUR ---
PATIENT AWAKENED BY PA FOR MIDNIGHT VITALS. PATIENT AGAIN ANXIOUS. NURSING COMFORT MEASURES INITIATED. PATIENT ASSISTED TO BR TO VOID. BED AND LINENS STRAIGHTENED. PATIENT RETURNED TO BED, WARM BLANKETS PROVIDED. PRN TYLENOL GIVEN AT THIS TIME. IV FLUIDS MAINTAINED. CALL LIGHT WITHIN REACH. NO VOICED COMPLAINTS
[2019-03-02] VITALS: BP 140/72
--- NOTE | 2019-03-02 00:30 | NUR ---
PATIENT SNORING. VSS. CALL LIGHT WITHIN REACH
--- NOTE | 2019-03-02 02:05 | NUR ---
PATIENT AWAKE, HAVING COUGHING EPISODE. COUGH DRY, NON-PROD. PRN DILAUDID AND ZOFRAN PROVIDED TO ASSIST WITH NAUSEA AND ABD PAIN RATING A 6. COOLING BLANKET REMAINS IN USE, PATIENT AFEBRILE. IV FLUIDS MAINTAINED PER ORDER. CALL LIGHT WITHIN REACH
--- NOTE | 2019-03-02 03:00 | NUR ---
24 HR chart check completed.
--- NOTE | 2019-03-02 03:00 | NUR ---
MEDS EFFECTIVE. SLEEPING. RESPIRATIONS EASY. O2 IN USE. 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 CLOSE OBSERVATION MAINTAINED.
--- NOTE | 2019-03-02 04:55 | NUR ---
PATIENT AGAIN AWAKENED D/T COUGHING EPISODE. ANXIOUS, RESTLESS. 1:1 PROVIDED IN ATTEMPTS TO CALM PATIENT. TEMP 99.1, COOLING BLANKET REMAINS IN USE. HR 110'S-130'S. TYLENOL AND IV PROTONIX PROVIDED, SEE EMAR. IV FLUIDS INFUSING PER ORDER. CLOSE OBSERVATION MAINTAINED
--- NOTE | 2019-03-02 05:20 | NUR ---
PATIENT REMAINS RESTLESS DESPITE NURSING INTERVENTION. DR CRISTINA CONTACTED AND INFORMED, VS REVIEWED. NEW ORDERS RECEIVED
--- NOTE | 2019-03-02 06:00 | NUR ---
MEDS EFFECTIVE. SLEEPING. RESPIRATIONS EASY. O2 IN USE. IV FLUIDS MAINTAINED. CALL LIGHT WITHIN REACH.
[2019-03-02 08:00] VITALS: BP 128/92
--- NOTE | 2019-03-02 08:00 | NUR ---
PATIENT HYPERVENTILATING,HR 120-140,CRYING IN PAIN. PAIN MED NOT DUE TILL 0850. WILL CALL DOCTOR.
--- NOTE | 2019-03-02 08:10 | NUR ---
CALLED [facility] TO GET PRAUTORAZATION FOR PT TO GO TO [facility]. PER REP THE ACCEPTING FACILITY HAS TO DO PRECERT. CALLED PAGE AT [facility] AND SHE STATES SHE WILL HAVE TO ASK BECAUSE SHE HAS NEVER DONE IT BEFORE.
--- NOTE | 2019-03-02 08:30 | NUR ---
CALLED PAGE HUGGINS AT [facility] AND ASK IF THEY WERE DOING THE PRECERT OTHERWISE THE DOCTORS WILL GO TO ANOTHER FACILITY. STATES SHE IS STILL WAITING FOR THE OK.
--- NOTE | 2019-03-02 08:35 | NUR ---
DR. LEON OK TO GIVE DILAUDID EARLY. ALSO MEDICATED WITH PRN ZOFRAN AND STRAIGHT REGLAN.
--- NOTE | 2019-03-02 08:45 | NUR ---
CALLED [employer] BACK AND TOLD TO GIVE THEIR NUMBER TO PAGE AT [facility] AND HAVE HER CALL THEM. CALLED PAGE AND LEFT MESSAGE FOR HER TO CALL [facility] AND TO PLEASE CALL ME BACK AFTER SHE DOES.
[2019-03-02 09:00] LABS: BASO % 0.3 % (0.0-1.0); EOS # 0.5 10*3/uL (0.0-0.4); EOS % 4.6 % (1.0-4.0); HEMOGLOBIN 12.4 g/dl (14.0-18.0); LYMPH # 0.8 10*3/uL (1.3-4.4); LYMPH % 6.9 % (27.0-41.0); MEAN CELL VOLUME 81.7 fl (80.0-94.0); MEAN CORPUSCULAR HGB 26.7 pg (27.0-31.0); MEAN CORPUSCULAR HGB CONC 32.6 g/dl (33.0-37.0); MEAN PLATELET VOLUME 8.7 fl (9.6-12.3); MONO # 0.4 10*3/uL (0.1-1.0); MONO % 3.5 % (3.0-9.0); NEUT # 9.8 10*3/uL (2.3-7.9); NEUT % 82.9 % (47.0-73.0); RED BLOOD COUNT 4.65 10*6/uL (4.50-5.90); RED CELL DISTRI WIDTH 13.1 % (0-14.5); WHITE BLOOD COUNT 11.8 10*3/uL (4.8-10.8)
[2019-03-02 09:02] LABS: BUN 5 mg/dl (7-24); CHLORIDE 106 mmol/L (98-107); CREATININE 0.85 mg/dL (0.70-1.30); PLATELET COUNT AUTOMATED 458 10*3/uL (130-400); POTASSIUM 3.6 mmol/L (3.5-5.1); SODIUM 138 mmol/L (136-145)
--- NOTE | 2019-03-02 09:10 | NUR ---
PAGE CALLED BACK AND STATES IF PT WILL SIGN A FINANCIAL RESPONSABILITY PAPER. THEY WILL TAKE PT AND HAVE UR GET THE AUTH ONCE PT IS THERE.
--- NOTE | 2019-03-02 09:12 | NUR ---
FATHER CALLED IN AND UPDATED ON STATUS OF TRANSFER.
--- NOTE | 2019-03-02 09:59 | NUR ---
Finacial responibility form signed by pt and faxed to [facility].
--- NOTE | 2019-03-02 10:05 | NUR ---
RECIEVED A CALL FROM PAGE HUGGINS AT [facility], STATES SHE HAS RELEASED THE INFORMATION TO MED CALL AND THEY WILL BE CALLING WITH A BED.
--- NOTE | 2019-03-02 10:44 | NUR ---
PATIENT TO BE TRANSFERED TO [facility].
--- NOTE | 2019-03-02 11:47 | NUR ---
MEDICATED WITH PRN DILAUDID EARLY PER DR. QUIÑONEZ.
--- NOTE | 2019-03-02 11:53 | NUR ---
RECEIVED A CALL FROM DRE AT [facility] AND SHE STATES THAT PT DOES NOT NEED A PRECERT TO GO BY GROUND TO [place], STATES THEY CAN USE SAME CASE NUMBER ASSIGNED TO PT HERE AT [facility]. CASE NUMBER GIVEN TO [place] [id number]. CALLED PAGE AT [facility] AND GAVE HER THAT NUMBER. STILL AWAITING [facility] CALL TO CALL WITH BED.
--- NOTE | 2019-03-02 11:58 | NUR ---
MEDICATED WITH MOTRIN FOR TEMP 101.8.
[2019-03-02 12:00] VITALS: BP 125/91
--- NOTE | 2019-03-02 12:32 | NUR ---
PER JOSE ANNEALING FURNACE TENDER ON 5E, SHE STATES SHE CALLED [facility] AND THEY ARE STILL WORKING ON A BED FOR PT. WILL CONTINUE TO FOLLOW.
--- NOTE | 2019-03-02 12:53 | NUR ---
PATIENT SLEEPING AGAIN.
--- NOTE | 2019-03-02 14:21 | NUR ---
CALLED [facility] TO CHECK ON STATUS OF BED FOR TRANSFER. MESSAGE LEFT FOR THEM TO RETURN CALL FOR BED UPDATE. WILL CONTINUE TO FOLLOW.
--- NOTE | 2019-03-02 14:50 | NUR ---
NO RETURN CALL FROM [facility]. CALLED AGAIN AND TALKED WITH [facility], WHO STATES THEY ARE STILL WORKING TO FIND A BED AT [facility] FOR PT.
--- NOTE | 2019-03-02 15:17 | NUR ---
DR QUIÑONEZ NOTIFIED THAT BED IS STILL NOT AVAILABLE. STATES THEY HAVE TALKED WITH MOTHER AND SHE NOW WANTS PT TO GO TO [facility] ([facility]),
[2019-03-02 16:00] VITALS: BP 150/88
--- NOTE | 2019-03-02 17:34 | NUR ---
PATIENT MOANING HYPERVENTILATING,MEDICATED WITH PRN DILAUDID PER ORDER AND REQUEST.
--- NOTE | 2019-03-02 19:15 | NUR ---
DILAUDID EARLIER HELPED.
[2019-03-02 20:00] VITALS: BP 153/97
--- NOTE | 2019-03-02 20:25 | NUR ---
[facility] HERE TO TAKE PATIENT TO [place]. PATIENTS PARENTS TOOK PATIENTS BELONGING WITH THEM. PATIENT TOOK CELL PHONE WITH HIM. VITALS WNL AT THIS TIME. HEART MONITOR REMOVED.
--- NOTE | 2019-03-02 20:34 | NUR ---
REPORT GIVEN TO MICHELLE AT [facility] AT THIS TIME.
== END 2019-03-02 20:25 | disposition short-term general hospital (02) | DRG 871 ==
LOC: ED 07:41 → 5E 12:31 → EDHOLD 12:31 → 5E 12:32
PROVIDERS: Emergency Medicine; Internal Medicine; Registered Nurse; Student in an Organized Health Care Education/Training Program; ADMIT Internal Medicine
DX: A41.9 Sepsis, unspecified organism (principal); K22.6 Gastro-esophageal laceration-hemorrhage syndrome; E43 Unspecified severe protein-calorie malnutrition; J18.9 Pneumonia, unspecified organism; K22.10 Ulcer of esophagus without bleeding; E87.1 Hypo-osmolality and hyponatremia; I10 Essential (primary) hypertension; K29.00 Acute gastritis without bleeding; K44.9 Diaphragmatic hernia without obstruction or gangrene; K29.80 Duodenitis without bleeding; R65.20 Severe sepsis without septic shock; R11.2 Nausea with vomiting, unspecified; K21.9 Gastro-esophageal reflux disease without esophagitis; R51 Headache; D64.9 Anemia, unspecified; R73.9 Hyperglycemia, unspecified; E86.0 Dehydration; Z88.1 Allergy status to other antibiotic agents

== ENCOUNTER 2022-11-03 17:50 | Emergency (ER) | payer BC ==
[~2022-11-03] VITALS: Ht 182.8 cm; Wt 74.8 kg
[~2022-11-03 17:50] MED LIST: CEFTRIAXON2 GM/50 ML IV; Carafate1 GM PO; ENOXAPARIN40 MG/0.2 SC; KEFLEX 500 MG E2 CAP PO; LEVOFLOXAC750 MG/150 IV; METOCLOPRAM5 MG/1 ML IV; MUCINEX ER600 MG PO; PROTONIX40 M1 IV; VANCOMYCIN1.75 GM/50 IV
== END 2022-11-03 19:32 | disposition home health service (06) ==
LOC: ED 17:50
DX: T23.161A Burn of first degree of back of right hand, initial encounter (principal); T23.261A Burn of second degree of back of right hand, initial encounter; F41.9 Anxiety disorder, unspecified; J45.909 Unspecified asthma, uncomplicated; Z88.1 Allergy status to other antibiotic agents; Z98.890 Other specified postprocedural states; F12.90 Cannabis use, unspecified, uncomplicated; T31.0 Burns involving less than 10% of body surface; T75.09XA Other effects of lightning, initial encounter; Y93.89 Activity, other specified; Y92.89 Other specified places as the place of occurrence of the external cause; Y99.8 Other external cause status